=== PATIENT | female | born 1955 | race Caucasian/White ===

== ENCOUNTER 2018-09-02 00:43 | Observation (INO) ==
[2018-09-02] MEDS ORDERED: fentaNYL citrate 100 MCG/2 ML VIAL IV STA (00:50)
[2018-09-02] MEDS ORDERED: SODIUM CHLORIDE 0.9% 1000ML 1,000 ML IV ONE (00:51)
[2018-09-02 01:06] LABS: Basophils # (auto) 0.03 K/uL (0-0.2); Basophils % (auto) 0.3 %; Eosinophils # (auto) 0.28 K/uL (0-0.5); Eosinophils % (auto) 2.7 %; Hematocrit (blood only) 40.1 % (37-47); Hemoglobin 13.1 g/dL (12.0-16.0); Immature Granulocytes # (auto) 0.02 K/uL (0.00-0.02); Immature Granulocytes % (auto) 0.2 %; Lymphocytes # (auto) 2.06 K/uL (1.2-3.4); Lymphocytes % (auto) 19.5 %; Mean Corpuscular Hgb Conc 32.7 g/dL (32-36); Mean Corpuscular Volume 84.1 fL (80-100); Mean Platelet Volume 9.6 fL (7.4-10.4); Monocytes # (auto) 0.92 K/uL (0.11-0.59); Monocytes % (auto) 8.7 %; Neutrophils # (auto) 7.25 K/uL (1.4-6.5); Neutrophils % (auto) 68.6 %; Platelet Count 372 K/uL (130-400); RDW Coefficient of Variation 13.7 % (11.5-14.5); RDW Standard Deviation 42.2 fL (36.4-46.3); Red Blood Count 4.77 M/uL (4.2-5.4); White Blood Count 10.56 K/uL (4.8-10.8)
[2018-09-02 01:23] LABS: BUN Creatinine Ratio 11.4 (10-20); Blood Urea Nitrogen 9 mg/dl (7-18); Calcium 9.2 mg/dl (8.5-10.1); Carbon Dioxide 31 mmol/L (21-32); Chloride 105 mmol/L (98-107); Creatinine Clr Calc Pharmacy 64.1 ml/min; Est GFR (African American) 92.2; Est GFR (Non-African American) 79.6; Glucose 119 mg/dl (70-99); Potassium 3.3 mmol/L (3.5-5.1); Sodium 141 mmol/L (136-145)
[2018-09-02] MEDS ORDERED: HYDROmorphone INJ 1 MG/ML SYRINGE IV STA (01:26)
[2018-09-02 02:31] LABS: Appearance Urine Clear (Clear); Bilirubin Urine Negative (Negative); Color Urine Yellow; Glucose Urine UA Negative (Negative); Ketones Urine Negative (Negative); Leukocyte Esterase Urine Negative (Negative); Nitrite Urine Negative (Negative); Protein Urine Negative (Negative); Urobilinogen Urine Negative (Negative); pH Urine 8.5 (4.5-7.5)
[2018-09-02] MEDS ORDERED: methylPREDNISolone 125 MG/2 ML VIAL IV STA (02:43)
[2018-09-02] MEDS ORDERED: ONDANSETRON INJ 2 MG/ML 2 ML VIAL ONE (03:02)
[2018-09-02] MEDS ORDERED: POTASSIUM CHLORIDE 20 MEQ TABCR PO STA (03:29)
[2018-09-02] MEDS ORDERED: OXYCODONE/ACETAMINOPHEN 5mg/325mg TAB PO PRN (03:32)
[2018-09-02 03:49] LABS: Alanine Aminotransferase 39 U/L (12-78); Alkaline Phosphatase 111 U/L (45-117); Aspartate Aminotransferase 17 U/L (15-37); Bilirubin Direct < 0.1 mg/dl (0-0.2); Bilirubin,Total 0.2 mg/dl (0.1-1); Total Protein 7.5 gm/dl (6.4-8.2)
--- NOTE | 2018-09-02 04:01 | History & Physical Report ---
Date of Service September 02, 2018 Assessment & Plan (1) Intractable low back pain: Likely musculoskeletal Doubt sciatica given lack of radiculopathy symptoms Unclear precipitant hypertensive urgency secondary to uncontrolled pain Hypokalemia mood disorder, stable prediabetes as per records past tobacco abuse. OBS GMF Analgesia, local measures Facilitate home antihypertensive medication, may need titration Replace potassium PT eval Check hemoglobin A1c DVT prophylaxis. Lovenox subcu Full code Present on Admission?: Yes History of Present Illness Chief Complaint: Back pain Primary Care Provider: Efe Vazquez History obtained from patient, family, and records. Medical history significant for hypertension, hyperlipidemia, mood disorder, hypothyroidism, prediabetes as per records, past tobacco abuse. Patient noted achy left-sided back pain/LLQ pain for 2 days without radiation. No recollection of trauma. No fever, no chills. Intractable pain at the ER after multiple doses of narcotic meds. Solu-Medrol given at the ER. Medical History as above ER visit a few days ago for epistaxis issues, currently resolved Surgical History : Dental surgery, sinus surgery, BTL Family History : Heart disease Personal/Social history : Past tobacco abuse, no EtOH intake, factory employee Allergies Allergy/AdvReac Type Severity Reaction Status Date / Time iodine Allergy Severe ANPHILAXIS Unverified 09/02/18 00:55 shrimp Allergy Severe ANAPHALXIS Unverified 09/02/18 00:55 Cephalosporins Allergy Unknown UNKNOWN Unverified 09/02/18 00:55 Penicillins Allergy Unknown UNKNOWN Unverified 09/02/18 00:55 Sulfa (Sulfonamide Allergy Unknown UNKNOWN Unverified 09/02/18 00:55 Antibiotics) ivp dye Allergy Swelling Uncoded 09/02/18 00:55 of Lip/Tongue/Throat Home Medications Home Medications Medication Instructions Recorded Confirmed Type atorvastatin 20 mg PO DAILY 08/30/18 09/02/18 History diltiazem HCl 120 mg PO DAILY 08/30/18 09/02/18 History escitalopram oxalate 10 mg PO QAM 08/30/18 09/02/18 History levothyroxine 88 mcg PO QAM 08/30/18 09/02/18 History omeprazole 20 mg PO QAM 08/30/18 09/02/18 History aspirin 81 mg PO DAILY 09/02/18 09/02/18 History calcium carbonate 600 mg PO DIRECTED 09/02/18 09/02/18 History cholecalciferol (vitamin D3) 1,800 unit PO DAILY 09/02/18 09/02/18 History [Vitamin D3] Past Med/Surg History Social History marital status: Current Living Situation: Spouse current occupational status: retired Other Information That Helps Us Care for You: No Feels Safe at Home: Yes Safety Concerns: Feels Safe At This Time Smoking Status: Former smoker Hx Alcohol Use: No Hx Substance Use: No Beliefs That Will Affect Care: None Communication Ability: Effective Review of Systems As per HPI, all 10 systems reviewed, all other ROS negative Physical Exam 2 Vital Signs (Past 24 Hours): Last Vital Signs Temp 36.7 C 09/02/18 00:09 Pulse 92 H 09/02/18 02:20 Resp 18 09/02/18 02:20 BP 163/103 H 09/02/18 02:20 Pulse Ox 95 09/02/18 02:26 Physical Exam: GENERAL: Slightly uncomfortable, obese, no respiratory distress SKIN: Normal color, warm HEENT: [place] palpebral conjunctivae, no ptosis, dry buccal mucosa, nasal cannula in place NECK : Supple, short, no tenderness CHEST : CTA, no tenderness HEART : RRR, no obvious murmurs ABDOMEN: Some distention, nontender BACK : tenderness left lower back, negative straight leg raise test EXTREMITIES : minimal LE swelling, no tenderness, no other conspicuous deformities noted NEUROLOGIC : Coherent, no facial asymmetry, no other gross focality Results & Data Laboratory Results Laboratory Results WBC 10.56 K/uL (4.8-10.8) 09/02/18 01:00 RBC 4.77 M/uL (4.2-5.4) 09/02/18 01:00 Hgb 13.1 g/dL (12.0-16.0) 09/02/18 01:00 Hct 40.1 % (37-47) 09/02/18 01:00 MCV 84.1 fL (80-100) 09/02/18 01:00 MCH 27.5 pg (25-34) 09/02/18 01:00 MCHC 32.7 g/dL (32-36) 09/02/18 01:00 RDW Std Deviation 42.2 fL (36.4-46.3) 09/02/18 01:00 RDW Coeff of [place] 13.7 % (11.5-14.5) 09/02/18 01:00 Plt Count 372 K/uL (130-400) 09/02/18 01:00 MPV 9.6 fL (7.4-10.4) 09/02/18 01:00 Immature Gran % (Auto) 0.2 % 09/02/18 01:00 Neut % (Auto) 68.6 % 09/02/18 01:00 Lymph % (Auto) 19.5 % 09/02/18 01:00 [place] % (Auto) 8.7 % 09/02/18 01:00 Eos % (Auto) 2.7 % 09/02/18 01:00 Baso % (Auto) 0.3 % 09/02/18 01:00 Immature Gran # (Auto) 0.02 K/uL (0.00-0.02) 09/02/18 01:00 Neut # (Auto) 7.25 K/uL (1.4-6.5) H 09/02/18 01:00 Lymph # (Auto) 2.06 K/uL (1.2-3.4) 09/02/18 01:00 [place] # (Auto) 0.92 K/uL (0.11-0.59) H 09/02/18 01:00 Eos # (Auto) 0.28 K/uL (0-0.5) 09/02/18 01:00 Baso # (Auto) 0.03 K/uL (0-0.2) 09/02/18 01:00 Sodium 141 mmol/L (136-145) 09/02/18 01:00 Potassium 3.3 mmol/L (3.5-5.1) L 09/02/18 01:00 Chloride 105 mmol/L (98-107) 09/02/18 01:00 Carbon Dioxide 31 mmol/L (21-32) 09/02/18 01:00 Anion Gap 5.0 (3-11) 09/02/18 01:00 BUN 9 mg/dl (7-18) 09/02/18 01:00 Creatinine 0.80 mg/dl (0.6-1.2) 09/02/18 01:00 Est Cr Clr Drug Dosing 64.1 ml/min 09/02/18 01:00 Est GFR ( Amer) 92.2 09/02/18 01:00 Est GFR (Non-Af Amer) 79.6 09/02/18 01:00 BUN/Creatinine Ratio 11.4 (10-20) 09/02/18 01:00 Glucose 119 mg/dl (70-99) H 09/02/18 01:00 Calcium 9.2 mg/dl (8.5-10.1) 09/02/18 01:00 Magnesium 2.0 mg/dl (1.8-2.4) 09/02/18 01:00 Total Bilirubin 0.2 mg/dl (0.1-1) 09/02/18 01:00 Direct Bilirubin < 0.1 mg/dl (0-0.2) 09/02/18 01:00 AST 17 U/L (15-37) 09/02/18 01:00 ALT 39 U/L (12-78) 09/02/18 01:00 Alkaline Phosphatase 111 U/L (45-117) 09/02/18 01:00 Total Protein 7.5 gm/dl (6.4-8.2) 09/02/18 01:00 Albumin 4.0 gm/dl (3.4-5.0) 09/02/18 01:00 Lipase 257 U/L (73-393) 09/02/18 01:00 Urine Color Yellow 09/02/18 02:15 Urine Appearance Clear (Clear) 09/02/18 02:15 Urine pH 8.5 (4.5-7.5) H 09/02/18 02:15 Ur Specific [place] 1.010 (1.000-1.030) 09/02/18 02:15 Urine Protein Negative (Negative) 09/02/18 02:15 Urine Glucose (UA) Negative (Negative) 09/02/18 02:15 Urine Ketones Negative (Negative) 09/02/18 02:15 Urine Blood Negative (Negative) 09/02/18 02:15 Urine Nitrite Negative (Negative) 09/02/18 02:15 Urine Bilirubin Negative (Negative) 09/02/18 02:15 Urine Urobilinogen Negative (Negative) 09/02/18 02:15 Ur Leukocyte Esterase Negative (Negative) 09/02/18 02:[address] abdomen pelvis initial read no acute pathology
--- NOTE | 2018-09-02 05:48 | Emergency Department Note ---
Entered by Sangeeta Vera acting as a scribe for ED Provider Note Name: Melody Garza Age: 62 Arrives Via: Ambulance Informant: Patient/EMS HPI: 62 year old female arrives for evaluation of gradual worsening pain in lower back along the left side of her spine that started 2 days ago. The patient reports she had some low back issues in high school but nothing since. She states she did not bend or lift anything nor any recent activity that would have aggrevated back. The patient states that laying on her right side improves pain. Movement makes pain worse. Sometimes a deep breath makes low back more uncomfortable but has no shob nor chest pain. Patient radiates to LLQ at times as well as to left upper buttock. Chronic headache though nothing of unusual currently. Denies bowel/bladder issues, leg weakness. No history of back surgeries. Denies trauma/injuries. ROS: See above HPI for pertinent positives & negatives. A total of 10 systems reviewed and were otherwise negative. Past Medical History: Acute anterior epistaxis, high blood pressure, bronchitis , stomach problems, hyperlipidemia, and hypothyroidism. Past Surgical History: Sinus surgery Family History: Heart disease, high blood pressure, cancer Social History: Employed. Feels safe at home. Home Medications: Aspirin, atorvastatin, calcium carbonate, vitamin D3, diltiazem HCl, escitalopram, levothyroxine, and omeprazole. Allergies Iodine, shrimp, cephalosporins, penicillin , sulfa, and ivp dye. Physical: Vitals: BP: 157/103 P: 101 R: 18 Temp: 98.1 O2 Sat: 97 Delivery: Room air Exam: GENERAL: Patient is uncomfortable appearing and in moderate/severe distress. EYES: No scleral icterus, unremarkable pupils. ENT: Mucous membranes moist, no nasal congestion. NECK: No masses appreciated, no meningismus, trachea is midline. RESPIRATORY: No dyspnea. Clear to auscultation and equal bilaterally. No wheeze , no rhonchi. CARDIOVASCULAR: Regular rate and rhythm. No murmurs, rubs, gallops appreciated. GASTROINTESTINAL: Abdomen soft, tenderness to palpation of left lower quadrant, no peritonitis. Bowel sounds positive. No masses appreciated. BACK: No midline tenderness, no CVA tenderness. Vague tenderness over lumbar paraspinal muscles. EXTREMITIES: Normal motion all extremities, no cyanosis, no edema. NEUROLOGIC: Alert and oriented, no acute motor or sensory deficits, no focal weakness, cranial nerves grossly intact. SKIN: No rash, no jaundice, no diaphoresis. ED Course: Prior Medical Record, Triage/Nursing Notes, Medications, Allergies reviewed by Me Vital Signs: reviewed and remarkable for HTN Labs: Reviewed and remarkable for normal cbc, bmp, ua Interventions: Saline Lock, Fentanyl 100mcg IV, Dilaudid 1mg IV, Zofran 4mg IV, NSS bolus Imaging: [facility] Radiologist interpretation reviewed by me: "CT ABDOMEN & PELVIS Without Contrast: FINDINGS: The lung bases are clear. The liver and spleen are normal in size and free of mass lesions. The gallbladder, bile ducts and pancreas are normal. The adrenal gland are unremarkable. The kidneys are normal in size and contour. No stones, lesions or hydronephrosis. The appendix is unremarkable, as is the rest of the GI tract. Aorta is normal caliber. No adenopathy or extraluminal air. The osseous structures are normal IMPRESSION: Unremarkable CT abdomen and pelvis." Radiologist: Watson Carlin MD Consults: 0326: I reviewed the patient's case with Dr. Alvarez, [facility] Hospitalist. He will evaluate the patient for further management. 0350: Dr. Alvarez is admitting the patient. Reassessments/Times: 0045: Past medical records reviewed. The patient was evaluated in room B11B, and a complete history and physical examination were performed. 0101: I checked on the patient. The patient feels better after fentanyl. 0200: The patient required another round of pain medication. She is going to try to urinate. Reviewed getting an MRI of her spine. 0242: I checked on the patient. The patient still has significant pain with movement. Mildly hypoxic in room air due to pain medication. Blood pressure: Elevated - Referred to Hospitalist. Disposition: Admission to Hospitalist Differentials: Renal colic, disc herniation, pyelonephritis, diverticulitis, muscular strain. amongst other pathologies. Medical Decision Makin yr old female with low left back pain radiating to top left buttock and LLQ. Questionable LLQ TTP and with no history of either back nor abdominal nor kidney issues felt imaging indicated given level of pain she is having. With normal pulses and no peritonitis felt that CT without contrast reasonable. CT unremarkable. labs unremarkable. She has no neuro deficits, normal pulses and has full ROM (just with a lot of pain). Likely this is sciatic in nature. She does not have fevers, wbc elevation nor risks of epidural abscess. She does not have neuro deficits thus I do not feel that emergent MRI indicated at this time. She is requiring large doses of narcotics (in pt narc naive patient) and is still in quite some pain thus will start on steroids and can not dc home thus hospitalist consulted. We discussed ER MRI but they not they will evaluate patient first and discuss. Of note post void residual normal. Patient and family aware of findings and plan. Impression: Intractable Low Back Pain Jim Garcia MD The scribe's documentation has been prepared under my direction and personally reviewed by me in its entirety. I confirm that the note above accurately reflects all work, treatment, procedures, and medical decision making performed by me. Impression & Plan Intractable low back pain Past Med/Surg History Social History marital status: Current Living Situation: Spouse current occupational status: retired Feels Safe at Home: Yes Smoking Status: Former smoker Hx Alcohol Use: Yes Alcohol Intake Frequency: holidays/special occasions only Preferred Language: [place] Results & Data Vital Signs Vital Signs - 24 hr 09/02/18 00:09 09/02/18 02:20 09/02/18 02:26 Temperature 36.7 C Temperature Source Oral Sepsis Recent Fever Within 48 Hours No Sepsis Action Taken by Nursing No Action Required Pulse Rate 101 H Pulse Rate [Finger] 92 H Respiratory Rate 18 18 Respiratory Effort / Characteristics Respiratory Depth Normal Normal Blood Pressure 157/103 H Blood Pressure [Right Arm] 163/103 H Blood Pressure Mean 121 Blood Pressure Mean [Right Arm] 123 Blood Pressure Position [Right Arm] Lying Pulse Oximetry 97 95 95 Oxygen Delivery Method Room Air Room Air Nasal Cannula Oxygen Flow Rate 2 09/02/18 04:41 09/02/18 05:23 Temperature Temperature Source Sepsis Recent Fever Within 48 Hours Sepsis Action Taken by Nursing Pulse Rate 92 H Pulse Rate [Finger] 93 H Respiratory Rate 16 18 Respiratory Effort / Characteristics Non-Labored Respiratory Depth Normal Blood Pressure 145/100 H Blood Pressure [Right Arm] 145/100 H Blood Pressure Mean Blood Pressure Mean [Right Arm] 115 Blood Pressure Position [Right Arm] Pulse Oximetry 93 95 Oxygen Delivery Method Room Air Nasal Cannula Oxygen Flow Rate 2 Home Medications Current Medication List: was personally reviewed by me Laboratory Data Attestation: I reviewed the patient's lab results. Result diagrams: 09/02/18 01:00 09/02/18 01:00 Lab Results 09/02/18 09/02/18 09/02/18 Range/Units 01:00 01:00 02:15 WBC 10.56 (4.8-10.8) K/uL RBC 4.77 (4.2-5.4) M/uL Hgb 13.1 (12.0-16.0) g/dL Hct 40.1 (37-47) % MCV 84.1 (80-100) fL MCH 27.5 (25-34) pg MCHC 32.7 (32-36) g/dL RDW Std Deviation 42.2 (36.4-46.3) fL RDW Coeff of [place] 13.7 (11.5-14.5) % Plt Count 372 (130-400) K/uL MPV 9.6 (7.4-10.4) fL Immature Gran % (Auto) 0.2 % Neut % (Auto) 68.6 % Lymph % (Auto) 19.5 % [place] % (Auto) 8.7 % Eos % (Auto) 2.7 % Baso % (Auto) 0.3 % Immature Gran # (Auto) 0.02 (0.00-0.02) K/uL Neut # (Auto) 7.25 H (1.4-6.5) K/uL Lymph # (Auto) 2.06 (1.2-3.4) K/uL [place] # (Auto) 0.92 H (0.11-0.59) K/uL Eos # (Auto) 0.28 (0-0.5) K/uL Baso # (Auto) 0.03 (0-0.2) K/uL Sodium 141 (136-145) mmol/L Potassium 3.3 L (3.5-5.1) mmol/L Chloride 105 (98-107) mmol/L Carbon Dioxide 31 (21-32) mmol/L Anion Gap 5.0 (3-11) BUN 9 (7-18) mg/dl Creatinine 0.80 (0.6-1.2) mg/dl Est Cr Clr Drug Dosing 64.1 ml/min Est GFR ( Amer) 92.2 Est GFR (Non-Af Amer) 79.6 BUN/Creatinine Ratio 11.4 (10-20) Glucose 119 H (70-99) mg/dl Calcium 9.2 (8.5-10.1) mg/dl Magnesium 2.0 (1.8-2.4) mg/dl Total Bilirubin 0.2 (0.1-1) mg/dl Direct Bilirubin < 0.1 (0-0.2) mg/dl AST 17 (15-37) U/L ALT 39 (12-78) U/L Alkaline Phosphatase 111 (45-117) U/L Total Protein 7.5 (6.4-8.2) gm/dl Albumin 4.0 (3.4-5.0) gm/dl Lipase 257 (73-393) U/L Urine Color Yellow Urine Appearance Clear (Clear) Urine pH 8.5 H (4.5-7.5) Ur Specific [place] 1.010 (1.000-1.030) Urine Protein Negative (Negative) Urine Glucose (UA) Negative (Negative) Urine Ketones Negative (Negative) Urine Blood Negative (Negative) Urine Nitrite Negative (Negative) Urine Bilirubin Negative (Negative) Urine Urobilinogen Negative (Negative) Ur Leukocyte Esterase Negative (Negative) Administered Medications Discontinued Medications Fentanyl Citrate (Fentanyl Citrate) 100 mcg IV NOW STA Stop: 09/02/18 00:51 Last Admin: 09/02/18 00:57 Dose: 100 mcg Hydromorphone HCl (Dilaudid) 1 mg IV NOW STA Stop: 09/02/18 01:27 Last Admin: 09/02/18 01:28 Dose: 1 mg Sodium Chloride (Nss 1000ml) 1,000 mls @ 999 mls/hr IV .Q1H1M ONE Stop: 09/02/18 01:51 Last Infusion: 09/02/18 02:20 Dose: 0 mls/hr Admin: 09/02/18 00:57 Dose: 999 mls/hr Methylprednisolone (Solumedrol) 125 mg IV NOW STA Stop: 09/02/18 02:44 Last Admin: 09/02/18 02:57 Dose: 125 mg Ondansetron HCl (Zofran) Confirm Administered Dose 4 mg .ROUTE .STK-MED ONE Stop: 09/02/18 03:03 Last Admin: 09/02/18 03:05 Dose: 4 mg Potassium Chloride (Klor-Con M20) 40 meq PO NOW STA Stop: 09/02/18 03:30 Last Admin: 09/02/18 03:56 Dose: 40 meq Discharge Plan Visit Data Chief Complaint: Back Pain/Injury ED Provider: Jim Garcia Discharge Problem: Intractable low back pain Discharge Instructions Interventions: ED Discharge Assessment Last Done: 09/02/18 05:23 The scribe's documentation has been prepared under my direction and personally reviewed by me in its entirety. I confirm that the note above accurately reflects all work, treatment, procedures, and medical decision making performed by me.
[2018-09-02] MEDS ORDERED: ACETAMINOPHEN 325 MG TAB PO PRN (05:50)
[2018-09-02] MEDS ORDERED: LORazepam 0.5 MG/1 ML VIAL IV PRN (05:50)
[2018-09-02] MEDS ORDERED: LACTATED RINGER'S 1,000 ML IV ONE (05:50)
[2018-09-02] MEDS ORDERED: PROCHLORPERAZINE 5 MG in SYRINGE 4 ML IV PRN (05:50)
[2018-09-02] MEDS ORDERED: HYDROmorphone INJ 0.5 MG/0.5 ML SYR IV PRN (05:50)
[2018-09-02] MEDS: POTASSIUM CHLORIDE / WTR 10 MEQ/100 ML PLCT IV SCH ×2 (06:39→07:46)
[2018-09-02 06:43] LABS: Prothrombin Time 10.4 Seconds (9.0-12.0)
[2018-09-02] MEDS: LEVOTHYROXINE SODIUM 88 MCG TABLET PO SCH (06:45)
--- NOTE | 2018-09-02 08:13 | CT Scan Report ---
ABDOMEN AND PELVIS CT WITHOUT CONTRAST CT DOSE: 596.51 mGy.cm HISTORY: Acute left-sided flank pain. left flank pain radiating to LLQ TECHNIQUE: Multiaxial CT images of the abdomen and pelvis were performed without contrast. A dose lo wering technique was utilized adhering to the principles of ALARA. COMPARISON STUDY: None. FINDINGS: This patient is tilted within the gantry. Mild dependent subsegmental right basilar atelectasis. No p neumatosis or pneumoperitoneum. The imaged inferior cardiac chambers appear unremarkable. Hepatomegaly with hepatic steatosis. Spleen, gallbladder, pancreas and adrenal glands are unremarkabl e. Mild left-sided pelviectasis. No renal or ureteral calculi or obstructive uropathy. Ureters are un remarkable. Mild urinary bladder distention. Multiple calcifications of the pelvis suggest phlebolith s. Enlarged heterogeneous appearance of the uterus suggests fibroid uterus. No adnexal mass lesions. Mild calcification of the aorta without aneurysm. No adenopathy. Small sliding-type hiatal hernia. There may also be mild wall thickening about the distal esophagus. No small bowel obstruction. Colonic diverticulosis without acute diverticulitis. Appendix appears nor mal. No ascites or mesenteric inflammatory changes. Soft tissues are within normal limits. Bones appe ar intact. Facet arthrosis and spondylitic spurring noted about the lower lumbar spine. Grade 1 anter olisthesis L4 on L5, likely secondary to long-standing facet disease. IMPRESSION: 1. No renal or ureteral calculi or obstructive uropathy. 2. No bowel obstruction or focal bowel wall thickening. 3. Hepatomegaly with hepatic steatosis. 4. Small sliding-type hiatal hernia with mild wall thickening of the distal esophagus. 5. Fibroid uterus. 6. Additional findings as above. Electronically signed by: Flip Marinelli M.D. 09/02/2018 8:10 AM
[2018-09-02] MEDS: ESCITALOPRAM OXALATE 10 MG TAB PO SCH (09:07)
[2018-09-02] MEDS: LIDOCAINE 5% 1 PATCH TD SCH (09:07)
[2018-09-02] MEDS: dilTIAZem HCL 120 MG CAPCR PO SCH (09:07)
[2018-09-02] MEDS: PANTOprazole 40 MG TAB PO SCH (09:07)
[2018-09-02] MEDS: ATORVASTATIN 20 MG TAB PO SCH (09:07)
[2018-09-02] MEDS: ASPIRIN 81 MG ECTAB PO SCH (09:08)
[2018-09-02] MEDS: ENOXAPARIN INJ 40 MG/0.4 ML SYR SQ SCH (09:17)
--- NOTE | 2018-09-02 17:42 | Hospitalist Progress Note ---
Date of Service September 02, 2018 Assessment & Plan (1) Intractable low back pain: Likely musculoskeletal No acute trigger No history of kidney stone and/or renal angle pain Clinically no evidence of radiculopathy Has been feeling better Will need PT and OT evaluation Hypertensive urgency secondary to uncontrolled pain Blood pressure seems to be controlled Hypokalemia Supplement and recheck Mood disorder, stable No acute findings DVT prophylaxis. Lovenox subcu Full code Subjective 62-year-old female without significant past medical history was admitted yesterday with intractable low back pain without any radiculopathy. 09/02 Patient was seen and examined in medical floor in presence of the Pain is much better Again without any radiation No bowel and bladder We will get physical therapy evaluation before sending home Physical Exam 2 Vital Signs (Past 24 Hours): Last Vital Signs Temp 36.7 C 09/02/18 15:51 Pulse 100 H 09/02/18 15:51 Resp 16 09/02/18 15:51 BP 158/93 H 09/02/18 15:51 Pulse Ox 95 09/02/18 15:51 Physical Exam: No apparent distress at rest Constitutional: Lying in bed comfort Eyes: EOM intact bilaterally ENMT: external ear and nose normal, oropharynx normal Neck: trachea midline, no thyromegaly Respiratory: normal respiratory effort, lungs clear to auscultation Cardiovascular: Rate/Rhythm: regular rate and regular rhythm Heart Sounds: normal S1 and normal S2 Gastrointestinal (Abdomen): Benign, no organomegaly, bowel Musculoskeletal: no cyanosis or clubbing, extremities motor strength 5/5 Spine: thoracic spine normal to inspection and lumbar spine normal to inspection ; no thoracic spinal tenderness, no lumbar spinal tenderness and no paraspinal tenderness No tenderness in renal angles Results & Data Laboratory Results Short CBC 09/02/18 Range/Units 01:00 WBC 10.56 (4.8-10.8) K/uL Hgb 13.1 (12.0-16.0) g/dL Hct 40.1 (37-47) % Plt Count 372 (130-400) K/uL BMP 09/02/18 01:00 Sodium 141 Potassium 3.3 L Chloride 105 Carbon Dioxide 31 BUN 9 Creatinine 0.80 Glucose 119 H Calcium 9.2 Liver Function 09/02/18 Range/Units 01:00 Total Bilirubin 0.2 (0.1-1) mg/dl Direct Bilirubin < 0.1 (0-0.2) mg/dl AST 17 (15-37) U/L ALT 39 (12-78) U/L Alkaline Phosphatase 111 (45-117) U/L Albumin 4.0 (3.4-5.0) gm/dl Urine 09/02/18 Range/Units 02:15 Urine Color Yellow Urine Appearance Clear (Clear) Urine pH 8.5 H (4.5-7.5) Ur Specific [place] 1.010 (1.000-1.030) Urine Protein Negative (Negative) Urine Glucose (UA) Negative (Negative) Medications Administered Current Inpatient Medications Acetaminophen (Tylenol) 650 mg PO Q4H PRN PRN Reason: pain/fever Stop: 10/02/18 05:49 Aspirin (Ecotrin) 81 mg PO DAILY [facility] Stop: 10/02/18 08:59 Last Admin: 09/02/18 09:08 Dose: Not Given Atorvastatin Calcium (Lipitor) 20 mg PO DAILY [facility] Stop: 10/02/18 08:59 Last Admin: 09/02/18 09:07 Dose: 20 mg Diltiazem HCl (Cardizem Cd) 120 mg PO DAILY [facility] Stop: 10/02/18 08:59 Last Admin: 09/02/18 09:07 Dose: 120 mg Enoxaparin Sodium (Lovenox) [facility] Stop: 10/02/18 08:59 Last Admin: 09/02/18 09:17 Dose: 40 mg Escitalopram Oxalate (Lexapro) 10 mg PO QAM [facility] Stop: 10/02/18 08:59 Last Admin: 09/02/18 09:07 Dose: 10 mg Hydromorphone HCl (Dilaudid) 0.5 mg IV Q6H PRN PRN Reason: Pain Stop: 09/16/18 05:49 Lorazepam (Ativan) 0.5 mg in 1 mls @ 1 mls/min IV Q4H PRN PRN Reason: Anxiety/Agitation Stop: 10/02/18 05:49 Lactated Ringer's (Lr) 1,000 mls @ 60 mls/hr IV .[id number] ONE Stop: 09/02/18 22:29 Last Admin: 09/02/18 06:39 Dose: 60 mls/hr Prochlorperazine 5 mg/ Syringe 5 mls @ 5 mls/min IV Q6H PRN PRN Reason: Nausea And Vomiting Stop: 10/02/18 05:49 Ketorolac Tromethamine (Toradol) 15 mg IV Q4H PRN PRN Reason: Pain Stop: 09/07/18 05:49 Levothyroxine Sodium (Synthroid) 88 mcg PO DAILYBB [facility] Stop: 10/02/18 06:29 Last Admin: 09/02/18 06:45 Dose: 88 mcg Lidocaine (Lidoderm 5%) 1 patch [facility] [place] Stop: 10/02/18 08:59 Last Admin: 09/02/18 09:07 Dose: 1 patch Miscellaneous (Remove Lidoderm Patch) 1 ea N/A DAILY@2100 [facility] Stop: 10/02/18 20:59 Oxycodone/Acetaminophen (Percocet 5mg/325mg) 1 tab PO Q4H PRN PRN Reason: Pain Stop: 09/16/18 03:31 Pantoprazole Sodium (Protonix) 40 [facility] [place] Stop: 10/02/18 08:59 Last Admin: 09/02/18 09:07 Dose: 40 mg Tramadol HCl (Ultram) 25 - 50 mg PO Q4H PRN PRN Reason: Pain Stop: 10/02/18 03:31
[2018-09-02] MEDS: TRAMADOL HCL 50 MG TABLET PO PRN (22:38)
[2018-09-02] MEDS ORDERED: ONDANSETRON INJ 2 MG/ML 2 ML VIAL IV PRN (22:54)
[2018-09-03 05:43] LABS: Estimated Average Glucose 123 mg/dl
[2018-09-03 05:45] LABS: Basophils # (auto) 0.01 K/uL (0-0.2); Basophils % (auto) 0.1 %; Eosinophils # (auto) 0.04 K/uL (0-0.5); Eosinophils % (auto) 0.3 %; Hematocrit (blood only) 39.7 % (37-47); Hemoglobin 12.6 g/dL (12.0-16.0); Immature Granulocytes # (auto) 0.04 K/uL (0.00-0.02); Immature Granulocytes % (auto) 0.3 %; Lymphocytes # (auto) 1.93 K/uL (1.2-3.4); Lymphocytes % (auto) 12.8 %; Mean Corpuscular Hgb Conc 31.7 g/dL (32-36); Mean Corpuscular Volume 86.3 fL (80-100); Mean Platelet Volume 9.7 fL (7.4-10.4); Monocytes # (auto) 1.39 K/uL (0.11-0.59); Monocytes % (auto) 9.2 %; Neutrophils % (auto) 77.3 %; Platelet Count 381 K/uL (130-400); RDW Coefficient of Variation 14.4 % (11.5-14.5); RDW Standard Deviation 44.7 fL (36.4-46.3); White Blood Count 15.11 K/uL (4.8-10.8)
[2018-09-03] MEDS: LEVOTHYROXINE SODIUM 88 MCG TABLET PO SCH (06:38)
[2018-09-03] MEDS: TRAMADOL HCL 50 MG TABLET PO PRN ×2 (07:52→12:37)
[2018-09-03] MEDS: ATORVASTATIN 20 MG TAB PO SCH (07:53)
[2018-09-03] MEDS: ESCITALOPRAM OXALATE 10 MG TAB PO SCH (07:53)
[2018-09-03] MEDS: LIDOCAINE 5% 1 PATCH TD SCH (07:54)
[2018-09-03] MEDS: ASPIRIN 81 MG ECTAB PO SCH ×2 (07:54→08:01)
[2018-09-03] MEDS: PANTOprazole 40 MG TAB PO SCH (07:54)
[2018-09-03] MEDS: dilTIAZem HCL 120 MG CAPCR PO SCH (07:54)
[2018-09-03] MEDS: ENOXAPARIN INJ 40 MG/0.4 ML SYR SQ SCH (07:55)
[2018-09-03] MEDS: KETOROLAC TROMETHAMINE 15 MG/ML VIAL IV PRN (09:57)
--- NOTE | 2018-09-03 16:51 | Magnetic Resonance Report ---
MR lumbar spine wo con CLINICAL HISTORY: 62 years-old Female presenting with lower left-sided back pain, tingling down both legs to the feet, history of fall in May. TECHNIQUE: Multisequence, multiplanar MR imaging of the lumbar spine was performed without the use of intravenous contrast. IV contrast: None. COMPARISON: CT performed the previous day. FINDINGS: Localizer images: Enlargement of the uterus with a multicystic appearance. Normal lumbar lordosis apart from 4 mm of anterolisthesis of L4 on L5. No pars defect. Vertebral bodi es otherwise maintain normal height, alignment, bone marrow signal intensity. Mild intervertebral dis c desiccation noted diffusely though there is no significant intervertebral disc height loss. Additio nal multilevel degenerative changes further detailed below: L1-2: No significant neural foraminal or spinal canal narrowing. L2-3: Trace disc bulge and mild facet arthropathy results in mild bilateral neural foraminal narrowin g. No significant spinal canal narrowing. L3-4: Mild disc bulge with minimal effacement of the ventral thecal sac. Mild facet arthropathy. Mild to moderate bilateral neural foraminal narrowing. L4-5: Anterolisthesis and mild facet arthropathy. Mild bilateral neural foraminal narrowing. No signi ficant spinal canal narrowing. L5-S1: Facet arthropathy. No significant neural foraminal or spinal canal narrowing. The spinal cord terminates in good position at L1. Cauda equina normal morphology. No epidural collec tion. No paraspinal muscle edema. Nonspecific subcutaneous edema in the lumbar region. Remaining visu alized soft tissues again demonstrate the enlarged uterus. Left renal cyst suspected. T2 flow-voids i n the distal aorta and bifurcation preserved. IMPRESSION: 1. Mild multilevel degenerative changes of the lumbar spine with mild to moderate neural foraminal n arrowing as detailed above. No significant spinal canal stenosis. 2. Enlarged appearance of the uterus may suggest underlying adenomyosis or fibroid. Underlying malig shjai cannot be excluded. Gynecologic consultation recommended. Dedicated imaging with contrast-enhan william MR of the pelvis to be considered versus endometrial biopsy. Primary care physician (PCP) and/or surgical follow-up recommended until clinical, surgical, or pathologic diagnosis established. The report will be called/faxed according to standard departmental protocol. Electronically signed by: Carlos Alberto Crespo M.D. 09/03/2018 4:50 PM
--- NOTE | 2018-09-03 18:12 | Hospitalist Progress Note ---
Date of Service September 03, 2018 Assessment & Plan (1) Intractable low back pain: Likely musculoskeletal No acute trigger No history of kidney stone and/or renal angle pain Clinically no evidence of radiculopathy Has been feeling better Will need PT and OT evaluation Back pain is worse today MRI of the lumbar spine did not show any stenosis and/or nerve entrapment Which showed uterine mass to rule out any adenomyoma or adenocarcinoma of the uterus PIN SETTER consulted Hypertensive urgency secondary to uncontrolled pain Blood pressure seems to be controlled Hypokalemia Supplement and recheck Mood disorder, stable No acute findings DVT prophylaxis. Lovenox subcu Full code Subjective 62-year-old female without significant past medical history was admitted yesterday with intractable low back pain without any radiculopathy. 09/02 Patient was seen and examined in medical floor in presence of the Pain is much better Again without any radiation No bowel and bladder We will get physical therapy evaluation before sending home 09/03 She complains to have numbness in both the lower extremities Denies any new symptoms as of today Back pain is reasonable Denies any problem with urine and her bowel habit Physical Exam 2 Vital Signs (Past 24 Hours): Last Vital Signs Temp 36.8 C 09/03/18 15:51 Pulse 83 09/03/18 15:51 Resp 18 09/03/18 15:51 BP 117/79 09/03/18 15:51 Pulse Ox 93 09/03/18 15:51 Eyes: EOM intact bilaterally ENMT: external ear and nose normal, oropharynx normal Neck: trachea midline, no thyromegaly Respiratory: normal respiratory effort, lungs clear to auscultation Cardiovascular: Rate/Rhythm: regular rate and regular rhythm Heart Sounds: normal S1 and normal S2 Musculoskeletal: no cyanosis or clubbing, extremities motor strength 5/5 Spine: thoracic spine normal to inspection and lumbar spine normal to inspection ; no thoracic spinal tenderness, no lumbar spinal tenderness and no paraspinal tenderness
--- NOTE | 2018-09-03 18:51 | Progress Note ---
Date of Service September 03, 2018 STAFF ELECTRICAL ENGINEER Consult Pt's chart is reviewed Fibroid uterus is reported on CT scan of pelvis but there is no mention of size or dimensions of uterus and or fibroid Pelvis sono. of prlvis is ordered Once pelvis sono is available, TRAUMA COORDINATOR will see patient and make recommendations Thank you for the consult Physical Exam 2 Vital Signs (Past 24 Hours): Last Vital Signs Temp 36.8 C 09/03/18 15:51 Pulse 83 09/03/18 15:51 Resp 18 09/03/18 15:51 BP 117/79 09/03/18 15:51 Pulse Ox 93 09/03/18 15:51
[2018-09-04] MEDS: LEVOTHYROXINE SODIUM 88 MCG TABLET PO SCH (05:34)
[2018-09-04] MEDS: KETOROLAC TROMETHAMINE 15 MG/ML VIAL IV PRN (06:14)
--- NOTE | 2018-09-04 07:52 | Ultrasound Report ---
EXAMINATION: PELVIC ULTRASOUND CLINICAL HISTORY: Uterine enlargement COMPARISON STUDY: FINDINGS: The uterus measured the uterus measured 9.3 x 6.9 x 8.3 cm. Uterus was heterogeneous and there is a s uspected 6 cm fibroid.. The endometrial stripe was difficult to delineate. Neither ovary was visualized. There was no evidence of pathologic free pelvic fluid. The patient refused endovaginal scanning. IMPRESSION: 1. Enlarged uterus with a suspected 6 cm fibroid. 2. Nonvisualization of the ovaries 3. Technically limited study. The patient unfortunately refused endovaginal scanning. Electronically signed by: Talon Noland M.D. 09/04/2018 7:50 AM
[2018-09-04] MEDS ORDERED: POTASSIUM CHLORIDE 20 MEQ TABCR PO STA (08:46)
[2018-09-04] MEDS: PANTOprazole 40 MG TAB PO SCH (09:46)
[2018-09-04] MEDS: ESCITALOPRAM OXALATE 10 MG TAB PO SCH (09:46)
[2018-09-04] MEDS: ATORVASTATIN 20 MG TAB PO SCH (09:46)
[2018-09-04] MEDS: dilTIAZem HCL 120 MG CAPCR PO SCH (09:47)
[2018-09-04] MEDS: ENOXAPARIN INJ 40 MG/0.4 ML SYR SQ SCH (09:47)
[2018-09-04] MEDS: LIDOCAINE 5% 1 PATCH TD SCH (09:48)
[2018-09-04] MEDS: ASPIRIN 81 MG ECTAB PO SCH (09:50)
--- NOTE | 2018-09-04 13:13 | Hospitalist Progress Note ---
Date of Service September 04, 2018 Assessment & Plan (1) Intractable low back pain: Likely musculoskeletal No acute trigger No history of kidney stone and/or renal angle pain Clinically no evidence of radiculopathy Has been feeling better Will need PT and OT evaluation Back pain is worse today MRI of the lumbar spine did not show any stenosis and/or nerve entrapment Which showed uterine mass to rule out any adenomyoma or adenocarcinoma of the uterus DENTISTRY PROFESSOR consulted awaiting input and recommendation Ultrasound of the pelvis showed uterine fibroid Hypertensive urgency secondary to uncontrolled pain Blood pressure seems to be controlled Hypokalemia Supplement given Mood disorder, stable No acute findings DVT prophylaxis. Lovenox subcu Full code Discharge this afternoon Subjective 62-year-old female without significant past medical history was admitted yesterday with intractable low back pain without any radiculopathy. 09/02 Patient was seen and examined in medical floor in presence of the Pain is much better Again without any radiation No bowel and bladder We will get physical therapy evaluation before sending home 09/03 She complains to have numbness in both the lower extremities Denies any new symptoms as of today Back pain is reasonable Denies any problem with urine and her bowel habit 09/04 Symptomatically much improved Minimal numbness involving the toes No weakness and the pain is controlled Waiting to be seen by DENTISTRY PROFESSOR before discharge Physical Exam 2 Vital Signs (Past 24 Hours): Last Vital Signs Temp 36.5 C 09/04/18 07:34 Pulse 75 09/04/18 09:44 Resp 18 09/04/18 07:34 BP 127/78 09/04/18 09:44 Pulse Ox 95 09/04/18 07:34 Eyes: EOM intact bilaterally ENMT: external ear and nose normal, oropharynx normal Neck: trachea midline, no thyromegaly Respiratory: normal respiratory effort, lungs clear to auscultation Cardiovascular: Rate/Rhythm: regular rate and regular rhythm Heart Sounds: normal S1 and normal S2 Musculoskeletal: no cyanosis or clubbing, extremities motor strength 5/5 Spine: thoracic spine normal to inspection and lumbar spine normal to inspection ; no thoracic spinal tenderness, no lumbar spinal tenderness and no paraspinal tenderness Results & Data Medications Administered Current Inpatient Medications Acetaminophen (Tylenol) 650 mg PO Q4H PRN PRN Reason: pain/fever Stop: 10/02/18 05:49 Last Admin: 09/02/18 17:49 Dose: 650 mg Aspirin (Ecotrin) 81 mg PO DAILY [facility] Stop: 10/02/18 08:59 Last Admin: 09/04/18 09:50 Dose: Not Given Atorvastatin Calcium (Lipitor) 20 mg PO DAILY [facility] Stop: 10/02/18 08:59 Last Admin: 09/04/18 09:46 Dose: 20 mg Diltiazem HCl (Cardizem Cd) 120 mg PO DAILY [facility] Stop: 10/02/18 08:59 Last Admin: 09/04/18 09:47 Dose: 120 mg [facility]oxaparin [facility] ([facility]ox) [facility] [place]: 10/02/18 08:59 Last Admin: 09/04/18 09:47 Dose: 40 mg Escitalopram Oxalate (Lexapro) [facility] [place]: 10/02/18 08:59 Last Admin: 09/04/18 09:46 Dose: 10 mg Hydromorphone HCl (Dilaudid) 0.5 mg IV Q6H PRN PRN Reason: Pain Stop: 09/16/18 05:49 Last Admin: 09/03/18 04:10 Dose: 0.5 mg Lorazepam (Ativan) 0.5 mg in 1 mls @ 1 mls/min IV Q4H PRN PRN Reason: Anxiety/Agitation Stop: 10/02/18 05:49 Last Admin: 09/03/18 15:41 Dose: 1 mls/min Prochlorperazine 5 mg/ Syringe 5 mls @ 5 mls/min IV Q6H PRN PRN Reason: Nausea And Vomiting Stop: 10/02/18 05:49 Ketorolac Tromethamine (Toradol) 15 mg IV Q4H PRN PRN Reason: Pain Stop: 09/07/18 05:49 Last Admin: 09/04/18 06:14 Dose: 15 mg Levothyroxine Sodium (Synthroid) 88 mcg PO DAILYBB [facility] Stop: 10/02/18 06:29 Last Admin: 09/04/18 05:34 Dose: 88 mcg Lidocaine (Lidoderm 5%) 1 patch TD QAM [facility] Stop: 10/02/18 08:59 Last Admin: 09/04/18 09:48 Dose: 1 patch Miscellaneous (Remove Lidoderm Patch) 1 ea N/A DAILY@2100 [facility] Stop: 10/02/18 20:59 Last Admin: 09/03/18 21:18 Dose: Not Given Ondansetron HCl (Zofran) 4 mg IV Q6H PRN PRN Reason: Nausea Stop: 10/02/18 22:53 Oxycodone/Acetaminophen (Percocet 5mg/325mg) 1 tab PO Q4H PRN PRN Reason: Pain Stop: 09/16/18 03:31 Pantoprazole Sodium (Protonix) 40 mg PO QAM [facility] Stop: 10/02/18 08:59 Last Admin: 09/04/18 09:46 Dose: 40 mg Tramadol HCl (Ultram) 25 - 50 mg PO Q4H PRN PRN Reason: Pain Stop: 10/02/18 03:31 Last Admin: 09/03/18 12:37 Dose: 50 mg
--- NOTE | 2018-09-04 17:48 | Consultation ---
Date of Consultation September 04, 2018 History of Present Illness Attending Physician: Shakeel Mancia MD Allergies Allergy/AdvReac Type Severity Reaction Status Date / Time iodine Allergy Severe ANPHILAXIS Unverified 09/02/18 00:55 shrimp Allergy Severe ANAPHALXIS Unverified 09/02/18 00:55 Cephalosporins Allergy Unknown UNKNOWN Unverified 09/02/18 00:55 Penicillins Allergy Unknown UNKNOWN Unverified 09/02/18 00:55 Sulfa (Sulfonamide Allergy Unknown UNKNOWN Unverified 09/02/18 00:55 Antibiotics) ivp dye Allergy Swelling Uncoded 09/02/18 00:55 of Lip/Tongue/Throat Home Medications Home Medications Medication Instructions Recorded Confirmed Type atorvastatin 20 mg PO DAILY 08/30/18 09/02/18 History diltiazem HCl 120 mg PO DAILY 08/30/18 09/02/18 History escitalopram oxalate 10 mg PO QAM 08/30/18 09/02/18 History levothyroxine 88 mcg PO QAM 08/30/18 09/02/18 History omeprazole 20 mg PO QAM 08/30/18 09/02/18 History aspirin 81 mg PO DAILY 09/02/18 09/02/18 History calcium carbonate 600 mg PO DIRECTED 09/02/18 09/02/18 History cholecalciferol (vitamin D3) 1,800 unit PO DAILY 09/02/18 09/02/18 History [Vitamin D3] lidocaine 1 patch TRANSDERMAL QAM 7 Days #7 09/04/18 Rx ea tramadol 50 mg PO Q4H PRN 7 Days #20 tab 09/04/18 Rx Patient History Social History marital status: Current Living Situation: Spouse current occupational status: retired Other Information That Helps Us Care for You: No Feels Safe at Home: Yes Safety Concerns: Feels Safe At This Time Smoking Status: Former smoker Hx Alcohol Use: No Hx Substance Use: No Beliefs That Will Affect Care: None Preferred Language: Senegalese Physical Exam 2 Vital Signs (Past 24 Hours): Last Vital Signs Temp 36.6 C 09/04/18 17:04 Pulse 81 09/04/18 17:04 Resp 19 09/04/18 17:04 BP 168/103 H 09/04/18 17:04 Pulse Ox 93 09/04/18 17:04 Genitourinary: Pelvic ultrasound confirms fibroid 6 cm. patient with no post-menopasusal bleeding Discussed with Dr. Mancia and patient to follow up in our office as outpatient Results & Data Diagnostic Findings Laboratory Results WBC 15.11 K/uL (4.8-10.8) H 09/03/18 05:26 RBC 4.60 M/uL (4.2-5.4) 09/03/18 05:26 Hgb 12.6 g/dL (12.0-16.0) 09/03/18 05:26 Hct 39.7 % (37-47) 09/03/18 05:26 MCV 86.3 fL (80-100) 09/03/18 05:26 MCH 27.4 pg (25-34) 09/03/18 05:26 MCHC 31.7 g/dL (32-36) L 09/03/18 05:26 RDW Std Deviation 44.7 fL (36.4-46.3) 09/03/18 05:26 RDW Coeff of [place] 14.4 % (11.5-14.5) 09/03/18 05:26 Plt Count 381 K/uL (130-400) 09/03/18 05:26 MPV 9.7 fL (7.4-10.4) 09/03/18 05:26 Immature Gran % (Auto) 0.3 % 09/03/18 05:26 Neut % (Auto) 77.3 % 09/03/18 05:26 Lymph % (Auto) 12.8 % 09/03/18 05:26 [place] % (Auto) 9.2 % 09/03/18 05:26 Eos % (Auto) 0.3 % 09/03/18 05:26 Baso % (Auto) 0.1 % 09/03/18 05:26 Immature Gran # (Auto) 0.04 K/uL (0.00-0.02) H 09/03/18 05:26 Neut # (Auto) 11.70 K/uL (1.4-6.5) H 09/03/18 05:26 Lymph # (Auto) 1.93 K/uL (1.2-3.4) 09/03/18 05:26 [place] # (Auto) 1.39 K/uL (0.11-0.59) H 09/03/18 05:26 Eos # (Auto) 0.04 K/uL (0-0.5) 09/03/18 05:26 Baso # (Auto) 0.01 K/uL (0-0.2) 09/03/18 05:26 PT 10.4 Seconds (9.0-12.0) 09/02/18 06:24 INR 1.0 (0.9-1.1) 09/02/18 06:24 Sodium 141 mmol/L (136-145) 09/02/18 01:00 Potassium 3.3 mmol/L (3.5-5.1) L 09/02/18 01:00 Chloride 105 mmol/L (98-107) 09/02/18 01:00 Carbon Dioxide 31 mmol/L (21-32) 09/02/18 01:00 Anion Gap 5.0 (3-11) 09/02/18 01:00 BUN 9 mg/dl (7-18) 09/02/18 01:00 Creatinine 0.80 mg/dl (0.6-1.2) 09/02/18 01:00 Est Cr Clr Drug Dosing 64.1 ml/min 09/02/18 01:00 Est GFR ( Amer) 92.2 09/02/18 01:00 Est GFR (Non-Af Amer) 79.6 09/02/18 01:00 BUN/Creatinine Ratio 11.4 (10-20) 09/02/18 01:00 Glucose 119 mg/dl (70-99) H 09/02/18 01:00 Estimat Average Glucose 123 mg/dl 09/02/18 01:00 Hemoglobin A1c 5.9 % (4.5-5.6) H 09/02/18 01:00 Calcium 9.2 mg/dl (8.5-10.1) 09/02/18 01:00 Magnesium 2.0 mg/dl (1.8-2.4) 09/02/18 01:00 Total Bilirubin 0.2 mg/dl (0.1-1) 09/02/18 01:00 Direct Bilirubin < 0.1 mg/dl (0-0.2) 09/02/18 01:00 AST 17 U/L (15-37) 09/02/18 01:00 ALT 39 U/L (12-78) 09/02/18 01:00 Alkaline Phosphatase 111 U/L (45-117) 09/02/18 01:00 Total Protein 7.5 gm/dl (6.4-8.2) 09/02/18 01:00 Albumin 4.0 gm/dl (3.4-5.0) 09/02/18 01:00 Lipase 257 U/L (73-393) 09/02/18 01:00 Urine Color Yellow 09/02/18 02:15 Urine Appearance Clear (Clear) 09/02/18 02:15 Urine pH 8.5 (4.5-7.5) H 09/02/18 02:15 Ur Specific [place] 1.010 (1.000-1.030) 09/02/18 02:15 Urine Protein Negative (Negative) 09/02/18 02:15 Urine Glucose (UA) Negative (Negative) 09/02/18 02:15 Urine Ketones Negative (Negative) 09/02/18 02:15 Urine Blood Negative (Negative) 09/02/18 02:15 Urine Nitrite Negative (Negative) 09/02/18 02:15 Urine Bilirubin Negative (Negative) 09/02/18 02:15 Urine Urobilinogen Negative (Negative) 09/02/18 02:15 Ur Leukocyte Esterase Negative (Negative) 09/02/18 02:15
--- NOTE | 2018-09-05 08:12 | Discharge Summary ---
Date of Service September 05, 2018 Admission HPI Per Admitting Provider History obtained from patient, family, and records. Medical history significant for hypertension, hyperlipidemia, mood disorder, hypothyroidism, prediabetes as per records, past tobacco abuse. Patient noted achy left-sided back pain/LLQ pain for 2 days without radiation. No recollection of trauma. No fever, no chills. Intractable pain at the ER after multiple doses of narcotic meds. Solu-Medrol given at the ER. Medical History as above ER visit a few days ago for epistaxis issues, currently resolved Surgical History : Dental surgery, sinus surgery, BTL Family History : Heart disease Personal/Social history : Past tobacco abuse, no EtOH intake, factory employee Admission Exam Per Admitting Provider Vital Signs (Past 24 Hours): Last Vital Signs Temp 36.7 C 09/02/18 00:09 Pulse 92 H 09/02/18 02:20 Resp 18 09/02/18 02:20 BP 163/103 H 09/02/18 02:20 Pulse Ox 95 09/02/18 02:26 Physical Exam: GENERAL: Slightly uncomfortable, obese, no respiratory distress SKIN: Normal color, warm HEENT: [place] palpebral conjunctivae, no ptosis, dry buccal mucosa, nasal cannula in place NECK : Supple, short, no tenderness CHEST : CTA, no tenderness HEART : RRR, no obvious murmurs ABDOMEN: Some distention, nontender BACK : tenderness left lower back, negative straight leg raise test EXTREMITIES : minimal LE swelling, no tenderness, no other conspicuous deformities noted NEUROLOGIC : Coherent, no facial asymmetry, no other gross focality Principal Diagnosis Intractable back pain, no radiculopathy, uterine fibroid Discharge Exam Eyes EOM intact bilaterally ENMT external ear and nose normal, oropharynx normal Neck trachea midline, no thyromegaly Respiratory normal respiratory effort, lungs clear to auscultation Cardiovascular Rate/Rhythm: regular rate and regular rhythm Heart Sounds: normal S1 and normal S2 Musculoskeletal no cyanosis or clubbing, extremities motor strength 5/5 Spine: thoracic spine normal to inspection and lumbar spine normal to inspection ; no thoracic spinal tenderness, no lumbar spinal tenderness and no paraspinal tenderness Discharge Data Allergies Allergy/AdvReac Type Severity Reaction Status Date / Time iodine Allergy Severe ANPHILAXIS Unverified 09/02/18 00:55 shrimp Allergy Severe ANAPHALXIS Unverified 09/02/18 00:55 Cephalosporins Allergy Unknown UNKNOWN Unverified 09/02/18 00:55 Penicillins Allergy Unknown UNKNOWN Unverified 09/02/18 00:55 Sulfa (Sulfonamide Allergy Unknown UNKNOWN Unverified 09/02/18 00:55 Antibiotics) ivp dye Allergy Swelling Uncoded 09/02/18 00:55 of Lip/Tongue/Throat Consultations 09/02/18 03:27 ED Decision to Admit Stat 09/02/18 05:50 Consult Case Management - Discharge Planning Routine 09/03/18 17:03 Consult Gynecology Routine Ordered Studies 09/02/18 00:50 CT abd pelvis wo con Urgent 09/03/18 11:32 MR lumbar spine wo con Urgent 09/04/18 US pelvic complete Urgent Hospital Course (1) Intractable low back pain: Likely musculoskeletal No acute trigger No history of kidney stone and/or renal angle pain Clinically no evidence of radiculopathy Has been feeling better Will need PT and OT evaluation Back pain is worse today MRI of the lumbar spine did not show any stenosis and/or nerve entrapment Which showed uterine mass to rule out any adenomyoma or adenocarcinoma of the uterus DIRECTOR OF FINANCIAL REPORTING consulted awaiting input and recommendation Ultrasound of the pelvis showed uterine fibroid Hypertensive urgency secondary to uncontrolled pain Blood pressure seems to be controlled Hypokalemia Supplement given Mood disorder, stable No acute findings DVT prophylaxis. Lovenox subcu Full code Discharge this afternoon Total Time Total Time Spent Total Time Spent (In Minutes): 35 minutes Total Time Includes: Examination of the Patient, Discharge Planning, Medication Reconciliation and Communication With Other Providers Discharge Plan Discharge Items Patient Disposition: Home - Self-Care Reason For Visit: BACK PAIN Discharge Diagnosis: Intractable back pain, no radiculopathy, uterine fibroid Condition: Good Discharge Goals: Decrease discomfort, Improve disease control and Improve function Activity: Resume your previous activity Non-emergency contact: Primary Care Provider Call non-emergency contact if: you have any medication questions and your symptoms worsen Follow-up/Referrals: Efe Vazquez [Primary Care Provider] - 09/11/18 10:05 am Diet: Regular Addtl Provider Instructions: He can try [id number] NSAID use for pain control Prescriptions: New tramadol 50 mg Tablet 50 mg PO Q4H PRN (Reason: pain) 7 Days Qty: 20 RF: 0 lidocaine 5 % Adhesive Patch,Medicated 1 patch Transdermal QAM 7 Days Qty: 7 RF: 0 Continue atorvastatin 20 mg tablet 20 mg PO DAILY RF: 0 levothyroxine 88 mcg tablet 88 mcg PO QAM RF: 0 omeprazole 20 mg capsule,delayed release(DR/EC) 20 mg PO QAM RF: 0 diltiazem HCl 120 mg capsule,extended release 24hr 120 mg PO DAILY RF: 0 escitalopram oxalate 10 mg tablet 10 mg PO QAM RF: 0 aspirin 81 mg Tablet,Delayed Release (Dr/Ec) 81 mg PO DAILY RF: 0 cholecalciferol (vitamin D3) [Vitamin D3] 1,000 unit Tablet 1,800 unit PO DAILY RF: 0 calcium carbonate 600 mg calcium (1,500 mg) Tablet 600 mg PO DIRECTED RF: 0 Stand-Alone Forms: [facility] Discharge Orders: Discharge Order (Routine); Ordered 09/04/18 Ordered By: Shakeel Mancia Admission Data Admit Date/Time: 09/02/18 04:04 Attending Provider: Shakeel Mancia Admit Provider: Epifanio Alvarez Primary Care Provider: Efe Vazquez Other Providers: Epifanio Alvarez ; Uday Sarah ; Colleen Steven ; Pavithra Hoffman ; Nicola Perez ; Irving Hurd ; Sinan Wise ; Tyler Hatch ; Howard Florez Jr ; Patricia Jhaveri ; Mariajose Campbell V. ; Leny Garcia Service: Medical Other Interventions: Discharge Summary Assessment (RN) Last Done: 09/04/18 17:04 NC Date/Time DO NOT enter until pt leaves facility: 09/04/18 17:46
== END 2018-09-04 17:46 | disposition home or self-care (01) ==
LOC: 4E 00:43 → ED 00:43 → SUATTDRO 04:04 → 4E 05:23